=== PATIENT | male | born 1940 | race Caucasian/White ===

== ENCOUNTER 2017-06-27 14:00 | Inpatient (IN) ==
[2017-06-27] MEDS: NS 1,000 ML IV SCH (17:47)
--- NOTE | 2017-06-27 18:20 | Diag Imaging Result Doc PS360 ---
CHEST-PORTABLE - 06/27/2017 INDICATION: profound anemia TECHNIQUE: COMPARISON: None FINDINGS: There are several calcified granulomas in right hilar lymph nodes. The lungs are normally expanded and clear. Heart size and mediastinal contours are normal. No pneumothorax or pleural effusion. IMPRESSION: Negative exam. Electronically signed by Iftikhar La 06/27/2017 6:18 PM
[2017-06-27 18:23] LABS: HEMATOCRIT 18.2 % (42.0-52.0); MANUAL DIFF NEEDED? YES; MCH 26.1 PG (27-31); MCHC 29.1 g/dL (33-37); MCV 89.7 FL (81-99); MPV 9.3 FL (7.4-10.4); RBC 2.03 XMIL (4.7-6.1)
[2017-06-27 18:25] LABS: HEMOGLOBIN 5.3 g/dL (14.0-18.0); PLT 1260 X1000 (130-400)
[2017-06-27 18:26] LABS: ALBUMIN 3.2 g/dL (3.5-5.0); CALCIUM 7.7 mg/dL (8.8-10.2); POTASSIUM 4.5 mmol/L (3.5-5.1); TOTAL BILIRUBIN 0.58 mg/dL (0.20-1.00); TOTAL PROTEIN 5.4 g/dL (6.3-8.3)
[2017-06-27 18:36] LABS: INR 1.09; PROTIME 11.5 Seconds (9.2-11.7)
[2017-06-27 18:37] LABS: FERRITIN 65 ng/mL (30-400)
[2017-06-27 18:49] LABS: BANDS 7 % (0-1); LYMPHS 2 % (21-51); NRBC 6 % (0-0)
--- NOTE | 2017-06-27 19:07 | HISTORY AND PHYSICAL ---
CHIEF COMPLAINT: Weakness and GI bleeding. HISTORY OF PRESENT ILLNESS: Mr. 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 Mirza. He said over the past 2- 3 days he has been much more weak, almost unable to walk, but denies any unilateral or focal weakness. He also reports over the past 2-3 weeks he has had melena. He denies any abdominal pain , any bright red blood per rectum, or hematemesis. He has been, what he reports as dry heaving today, but denies any overt abdominal pain. When he got to [facility] he was profoundly anemic and had a white count of greater than 100,000. The decision was then to transfer him to our facility for further treatment and evaluation. Currently he is hemodynamically stable in the ICU without any real acute complaints. Comprehensive labs and diagnostics have been ordered and are pending. PAST MEDICAL HISTORY: 1. CML. 2. Nicotine dependence. 3. Hypertension. PAST SURGICAL HISTORY: He has had sinus surgery. SOCIAL HISTORY: He smokes a pack a day. Denies alcohol or drug use. He is a retired truck dispatcher. FAMILY HISTORY: Noncontributory. REVIEW OF SYSTEMS: Fourteen-point review of systems obtained and found to be negative with the exception of the HPI. ALLERGIES: No known drug allergies. HOME MEDICATIONS: Currently being compiled. PHYSICAL EXAMINATION: VITAL SIGNS: Blood pressure is 120/65, heart rate is 85, respiratory rate 19, O2 saturation 100% on 2 L, temperature is 97.5 degrees. GENERAL: This is a chronically ill-appearing, 76-year-old male, lying in hospital bed. No acute distress. NEUROLOGIC: The patient is awake, alert, oriented. Follows commands without focal deficits. HEENT: Head is atraumatic, normocephalic. His pupils are equal, round, reactive to light. Conjunctivae are pale. Oral mucosa is pale and dry. NECK: Supple. Trachea is midline. CHEST: Diminished at the bases but clear to auscultation bilaterally. CV: Regular rate and rhythm. S1, S2 is noted. GI: Soft, nondistended, nontender. Bowel sounds positive. EXTREMITIES: No edema, clubbing or cyanosis. Pulses palpable bilaterally. DIAGNOSTIC DATA: Pending. ASSESSMENT AND PLAN: 1. Gastrointestinal bleed: Presumably secondary to his Plavix and aspirin use. There is no abdominal pain. We will stop any antiplatelets and anticoagulants. Will consult GI. Add b.i.d. Protonix IV and IV fluids. We have ordered labs with type and screen and iron studies which are pending. 2. Acute blood loss anemia: Current hemoglobin and hematocrit is unknown but is pending shortly. Will type and screen the patient and transfuse if necessary. Iron studies have been ordered. 3. Coronary artery disease: Patient denies any chest pain. We have ordered an EKG and chest x- ray. Will monitor telemetry. 4. Chronic myelogenous leukemia: We will consult Dr. Mirza. His CBC is pending. 5. Nicotine dependence: Patient has been advised to quit smoking. We will write a nicotine patch and continue daily cessation education. 6. Deep vein thrombosis prophylaxis will be provided with SCDs given his gastrointestinal bleeding. Further recommendations to follow. Patient seen and examined by me face to face, all the lab work, vitals signs, images were reviewed, Patient has a past medical history of CML, he states that he was diagnosed 5 - 6 months ago but we talked with Dr Mirza, his oncologist Doctor and he was actually diagnose a couple weeks ago, he is currently asymptomatic, We will consult GI because of GI bleed and anemia, I agree with the assessment and plan, Rodo Alexander MD Dictated by MONIKA Harris for Rodo Sauceda MD cc: MONIKA Harris MD [facility]
[2017-06-27] MEDS: SODIUM CHLORIDE 0.9% INJ SCH (19:30)
[2017-06-27] MEDS: PROTONIX IV SCH (19:30)
[2017-06-27] MEDS ORDERED: NS 250 ML ONE (20:08)
[2017-06-27 20:38] LABS: URINE CULTURE NEEDED? NO
[2017-06-27 20:39] LABS: URINE MICRO REVIEW NEEDED? NO; URINE SOURCE CLEAN CATCH
[2017-06-27 20:46] LABS: BILIRUBIN URINE NEGATIVE (NEGATIVE); BLOOD URINE NEGATIVE (NEGATIVE); COLOR YELLOW; GLUCOSE URINE NEGATIVE (NEGATIVE); LEUKOCYTES URINE NEGATIVE (NEGATIVE); NITRITE URINE NEGATIVE (NEGATIVE); PH URINE 5.5; PROTEIN URINE TRACE mg/dL (NEGATIVE); SP GRAVITY URINE 1.017; TURBIDITY URINE CLEAR (CLEAR); UR EPITHELIAL CELLS <10 /HPF (<10); URINE BACTERIA NEGATIVE /HPF; URINE RBC <10 /HPF (<10); URINE WBC <10 /HPF (<10); UROBILINOGEN URINE NORMAL (NORMAL)
[2017-06-27 21:00] LABS: PROTEIN CREAT RATIO 0.2; UR CREAT RANDOM 69.1 mg/dL (14-26); UR PROT RANDOM 16.5 mg/dL
[2017-06-28 05:16] LABS: HEMATOCRIT 22.9 % (42.0-52.0); HEMOGLOBIN 7.1 g/dL (14.0-18.0); MCV 90.2 FL (81-99); MPV 9.5 FL (7.4-10.4); RBC 2.54 XMIL (4.7-6.1)
[2017-06-28 05:18] LABS: PLT 1083 X1000 (130-400)
--- NOTE | 2017-06-28 05:20 | EKG Report ---
Test Performed on : 06/27/2017 5:48:36 PM Test Reason : anemia Blood Pressure : / mmHG Vent. Rate : 081 BPM Atrial Rate : 081 BPM P-R Int : 328 ms QRS Dur : 096 ms QT Int : 388 ms P-R-T Axes : 000 -63 092 degrees QTc Int : 450 ms Sinus rhythm. with 1st degree AV block. with premature atrial complexes. Left axis deviation Nonspecific ST and T wave abnormality Abnormal ECG No previous ECGs available Confirmed by Roddy ESCOBEDO, Romulo Jack ([id number]) on 06/28/2017 10:02:33 AM
[2017-06-28 05:24] LABS: CALCIUM 7.5 mg/dL (8.8-10.2); POTASSIUM 4.2 mmol/L (3.5-5.1)
[2017-06-28] MEDS: NS 1,000 ML IV SCH ×2 (05:32→20:50)
[2017-06-28 07:05] LABS: BANDS 1 % (0-1); HYPOCHROM OCCASIONAL; LYMPHS 2 % (21-51); MONO 2 % (1-9); NRBC 6 % (0-0)
[2017-06-28] MEDS: PROTONIX IV SCH ×2 (07:42→19:11)
[2017-06-28] MEDS: SODIUM CHLORIDE 0.9% INJ SCH ×2 (07:43→19:11)
--- NOTE | 2017-06-28 09:20 | CONSULTATION ---
DATE OF CONSULTATION: 06/28/2017 REASON FOR CONSULTATION: Severe anemia. HISTORY OF PRESENT ILLNESS: This is a 76-year-old white male, who reports a recent diagnosis of leukemia, following with Dr. Mirza. He states he started taking a new medication prescribed by Dr. Mirza, and he feels that it made him extremely weak. He reports for the last 2- 3 days, he has been unable to walk and had severe weakness. He presented to [facility] and was found to be severely anemic. He was found to have a WBC count of greater than 100, platelet count greater than 1000. He does report over the last several weeks, he has noticed some black stools, but he related that to taking iron. He states his been on iron supplements for several years prescribed by his haul driver. He follows with Dr. Ricci in [place]. He has history of cardiovascular stents. He denies abdominal pain. No reported nausea or vomiting. No reported bright red blood per rectum. No reported hematemesis. He did report having dry heaves. He states he has never had an EGD or colonoscopy. PAST MEDICAL HISTORY: Hypertension, cardiovascular disease, recent diagnosis of CML, leukemia. PAST SURGICAL HISTORY: Cardiovascular stents, sinus surgery. ALLERGIES: No known drug allergies. HOME MEDICATIONS: Calcium 40 mg every night, Toprol-XL 25 mg daily, Sprycel 100 mg daily, Effient 10 mg daily, iron 325 mg daily, aspirin 81 mg daily, allopurinol 300 mg twice daily. SOCIAL HISTORY: He reports tobacco use, one pack of cigarettes a day. He denies alcohol use. He lives alone. He is a retired shuttle truck driver. REVIEW OF SYSTEMS: Per HPI. PHYSICAL EXAMINATION: Vital Signs: Temperature 97.7 degrees, pulse 79, respirations 22, blood pressure 116/45. General: Patient is awake, alert, in no acute distress. HEENT: Normocephalic, atraumatic. Pupils equal, round, reactive to light. Sclerae nonicteric. Cardiovascular: Regular rate and rhythm. Respiratory: Lung sounds essentially clear bilaterally. Abdomen: Soft, nontender. Positive bowel sounds. Nondistended. Extremities: No lower extremity edema noted. Pedal pulses present bilaterally. DIAGNOSTIC RESULTS: Laboratory: Hematology: WBC 84.56 on admission. It was 106.80, hemoglobin 7.1, hematocrit 22.9. On admission, hemoglobin was 5.3 and a hematocrit 18.2, platelet count 1083. On admission, platelet count was 1260. Coagulation: Pro-time 11.5, INR 1.09. Chemistry: Sodium 141, potassium 4.2, chloride 111, CO2 19, BUN 42, creatinine 1.6. Iron 52, calcium 7.5, ferritin 65, total bilirubin 0.58. AST 21, ALT 8, alkaline phosphatase 61, vitamin B12 greater than 2000. Folate 6.3. TSH 4.39. ASSESSMENT: 1. Severe anemia. 2. Questionable gastrointestinal bleed. He does take Effient and aspirin. Anticoagulants are on hold. 3. Coronary artery disease. Currently anticoagulation has been held. 4. Chronic myelogenous leukemia. Recent diagnosis following with Dr. Mirza. PLAN: Continue symptomatic treatment and supportive care. Continue to monitor hemoglobin and hematocrit, and transfuse further packed red blood cells as needed. Monitor for active bleeding. We will proceed with an EGD today if it is okay with Dr. Mirza. Further plans will be made according to findings. I have discussed the procedure with the patient along with benefits and risks, and he wishes to proceed. Further plans will be made as needed. Thank you for this consultation. Dictated by MONIKA Anne for Juice Barrios MD cc: MONIKA Beard MD [facility]
--- NOTE | 2017-06-28 09:52 | PROGRESS NOTE ---
DATE: 06/28/2017 SUBJECTIVE: This patient states that he is feeling fine. He is not complaining of chest pain or shortness of breath. No belly pain. Gastroenterology department evaluated this patient and probably, he will go for an upper endoscopy today or tomorrow, previous authorization of Dr. Mirza, his bicycle messenger/oncologist doctor. He is tolerating p.o. at this moment. OBJECTIVE: Vital Signs: Temperature 97.7 degrees, pulse 69, respiratory rate 19, blood pressure 103/53, oxygen saturation 97% on room air. HEENT: Head is normocephalic. No trauma. PERRLA. Neck: Supple. No JVD. No masses. Central trachea. Chest: Clear to auscultation. No wheezing. No rales. Abdomen: Soft, nontender, nondistended. No hepatosplenomegaly. Extremities: No edema. No clubbing. No cyanosis. Neurological: The patient is alert and oriented x3. No focal neurological deficits. LABORATORY: WBC 84.5, hemoglobin 7.1, hematocrit 22.9, platelet 1083. Sodium 141, potassium 4.2, chloride 101, bicarbonate 19, BUN 42, creatinine 1.6, glucose 91, calcium 7.5. ASSESSMENT AND PLAN: 1. Gastrointestinal bleed on a patient that was taking Plavix and aspirin, this already has been stopped. Gastroenterology Department evaluated this patient. Probably they will scope this patient today or tomorrow. I will continue with IV Protonix and IV fluids. He received already PRBCs, and the hemoglobin improved to 7.1. He is asymptomatic, and vital signs are stable. I will continue to monitor hemoglobin and hematocrit closely. 2. Acute blood loss anemia, status post 2 packed red blood cells, stable. Continue to monitor. 3. History of coronary artery disease. He denies any chest pain or shortness of breath. Will monitor. 4. Chronic myelogenous leukemia. Apparently, this patient was diagnosed with leukemia a couple weeks ago. Dr. Mirza from Hematology/Oncology Department following this patient. He has been consulted. 5. Nicotine dependence. This patient has been highly advised to quit smoking. I will continue with daily cessation education and a nicotine patch. 6. Deep vein thrombosis prophylaxis provided by sequential compression devices given his gastrointestinal bleed. cc: Rdoo Sauceda MD
[2017-06-28 10:08] LABS: URIC ACID 3.2 mg/dL (3.4-7.0)
--- NOTE | 2017-06-28 11:43 | Diag Imaging Result Doc PS360 ---
US RENAL 2 (RETROPER) COMPLETE - 06/28/2017 INDICATION: susan TECHNIQUE: COMPARISON: None FINDINGS: There are a few bilateral renal cysts measuring up to 1.5 cm. No mass or hydronephrosis. Renal sizes are normal. Urinary bladder is normal. The right kidney measures 10.2 x 4.8 x 4.5 cm. The left kidney measures 9.8 x 5.2 x 4.4 cm. Cortex measures 9 mm bilaterally. There is incidental note is splenomegaly. The spleen measures 17.3 x 16.5 x 6.8 cm. IMPRESSION: 1. Benign renal cysts but no acute abnormality of the urinary tract. 2. Splenomegaly. Electronically signed by Iftikhar La 06/28/2017 11:40 AM
[2017-06-28] MEDS ORDERED: DIPRIVAN 1% ONE ×2 (15:18→15:30)
[2017-06-28] MEDS ORDERED: EPINEPHRINE SYRINGE ONE (15:23)
--- NOTE | 2017-06-28 20:00 | CONSULTATION ---
DATE OF CONSULTATION: 06/28/2017 REQUESTING PROVIDER: Hospitalist service. REASON FOR CONSULTATION: CML, patient known. HISTORY OF PRESENT ILLNESS: Mr. Nicole is a 76-year-old male who is known to us, as he was recently diagnosed with CML and is currently receiving SPRYCEL treatment. The patient was initially seen by Dr. Mirza at [facility] where he was believed to have a gastrointestinal bleed at that time. The patient was actually admitted to the ICU over at [facility], but then left prior to having scopes done, as they were planned to be done as an outpatient. Patient is yet to have any scopes done. It appears that he has again presented to [facility] complaining of weakness. He also reported having melena but denied any bright red blood per rectum, hematemesis or abdominal pain. He has now been admitted to the ICU for close monitoring. He did present with a white count that was greater than 100,000. The patient has evidently only had about 2 doses of SPRYCEL. Currently, the patient is sitting in the ICU hemodynamically stable without any new complaints. PAST MEDICAL HISTORY: 1. CML. 2. Nicotine dependence. 3. Hypertension. 4. Coronary artery disease. 5. Hyperlipidemia. SURGICAL HISTORY: 1. Status post coronary stent placement. 2. Sinus surgery. SOCIAL HISTORY: The patient is a retired hi low truck driver. He smokes about a pack cigarettes per day. Denies any alcohol or drug use. FAMILY HISTORY: His mother is alive at the age of 90. His father is and at the age of 76 due to a DVT. REVIEW OF SYSTEMS: Fourteen point review of system has been done and is found to be negative except for what was expressed in the HPI. PHYSICAL EXAMINATION: Vital Signs: Temperature 97.7 degrees, heart rate 69, respirations 18, blood pressure 103/53, O2 saturation 97% on room air. General: This is a well- nourished, well- developed male, lying in the hospital bed. He does not appear to be in any acute distress. There is no one at bedside. HEENT: Head appears to be normocephalic , atraumatic. Eyes, patient has glasses in place. Pupils equal, round, reactive. Gross auditory acuity is intact. Trachea appears to be midline. Cardiovascular: S1-S2 heard. No murmurs, gallops, rubs appreciated. Respiratory: Chest is essentially clear to auscultation bilaterally with normal respiratory effort. Abdomen: Soft, nontender, nondistended with positive bowel sounds. Musculoskeletal: No obvious bony abnormalities noted. Extremities: No swelling noted. No edema noted. Neurologic: Patient is alert and oriented x3. No focal motor deficits noted. LABS AND STUDIES: Today white blood cell count 84.56, hemoglobin 7.1, hematocrit 22.9, platelets 1083. Sodium 141, potassium 4.2, chloride 111, CO2 19, BUN 42, creatinine 1.6 , glucose 91. ASSESSMENT: 1. Chronic myelogenous leukemia. The patient has started SPRYCEL but has only reportedly taken 2 doses. Hold SPRYCEL for now but plan to reinitiate once he is out of the hospital. Counts are improving from admission. 2. Anemia. The patient is status post 2 units of packed red blood cells. Hemoglobin is improved. Continue to transfuse p.r.n. Plan is hopefully for a scope today or tomorrow to evaluate for other source of bleeding. 3. Gastrointestinal bleed. Again, the patient has been having melena. Plan is for scope, I believe, and the esophagogastroduodenoscopy he either today or tomorrow. Follow up on those results. 4. Leukocytosis and thrombocytosis. These are both secondary to chronic myelogenous leukemia. The patient has recently been diagnosed and counts are improving. Continue to monitor. 5. Coronary artery disease. No chest pain is noted. Chest x-ray and EKG were found to be unremarkable. I want to thank you for consulting us on Mr. Nicole. While he is here at [facility], we will continue to follow along and adjust our treatment plan per his hospital course. Dictated by CAMELIA Pitts for Twyla Mirza MD cc: Twyla Mirza MD I have seen and examined the patient and the above note reflects my assessment and plan. Twyla VIEIRA
[2017-06-29 05:08] LABS: CALCIUM 7.5 mg/dL (8.8-10.2); POTASSIUM 4.2 mmol/L (3.5-5.1)
[2017-06-29 05:44] LABS: HEMATOCRIT 22.5 % (42.0-52.0); HEMOGLOBIN 6.7 g/dL (14.0-18.0); MCH 26.4 PG (27-31); MCHC 29.8 g/dL (33-37); MCV 88.6 FL (81-99); MPV 9.2 FL (7.4-10.4); RBC 2.54 XMIL (4.7-6.1)
[2017-06-29] MEDS ORDERED: CRESTOR PO SCH (07:46)
--- NOTE | 2017-06-29 09:08 | OPERATIVE NOTE ---
PROCEDURE DATE: 06/28/2017 PROCEDURE: Esophagogastroduodenoscopy and hemorrhage control. PREOPERATIVE DIAGNOSES: 1. Acute gastrointestinal bleed. 2. Anemia secondary to gastrointestinal bleed and leukemia. POSTOPERATIVE DIAGNOSES: Arteriovenous malformation, treated. MEDICATION: MAC as per Anesthesia. SCOPE: Olympus GIF HQ-[id number]. HISTORY: This is a 76-year-old gentleman who was recently diagnosed with leukemia and has been started on medication which he could not tolerated. However, in the interim he started having some dark stool. His hemoglobin dropped. The latest hemoglobin done in [facility] was 5.3 with hematocrit of 18.2. EGD was done for diagnostic as well as therapeutic purposes. DESCRIPTION OF PROCEDURE: Informed consent obtained from the patient. The procedure, risks, benefits, alternatives explained. He understood. All of his pertinent questions were answered. Patient was brought to the endoscopy unit and was premedicated as per Anesthesia. After adequate sedation, while he was lying in left lateral position, the gastroscope was introduced into the posterior pharynx and advanced under direct vision into the esophagus. Esophagus in its entire length appeared to be normal. No esophagitis, webs, rings, varices were seen. No evidence of active bleeding or stigmata of recent bleed seen. The scope was then passed through the esophagus into the stomach. Stomach was examined both straight and retroflexed view, which revealed normal cardia, fundus, body, and antrum. Again there was no evidence of active bleeding or stigmata of recent bleed. The scope was then passed through the normal pylorus, into the duodenal bulb, and then 2nd part duodenum. In the 2nd portions of the duodenum there were a few AVMs seen. One of them had evidence of possible recent bleed. The other 2 were small but no evidence of active bleeding from them. Using a sclerotherapy needle, I injected epinephrine [id number] in aliquots of 0.5 mL. A total of about 2 mL were injected altogether but all 3 of spots were injected. Then using Monopolar probe I cauterized all of these spots. Good cautery was noted. Initially there was some oozing but it stopped and no further bleeding was noted. I examined the rest of the 2nd portion of the duodenum as well as the bulb and there were no further he AVMs seen. The scope was then removed. Patient tolerated the procedure well. No complications noted. Patient was then transferred to the recovery area in a stable condition. 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 Got treated with epinephrine and cauterized successfully. RECOMMENDATION: We will continue to follow hemoglobin and hematocrit and transfuse if necessary. In the meantime, further plan as per Dr. Mirza, who is the oncologist on the case. I would continue him on proton pump inhibitor in the interim. cc: Juice Barrios MD
[2017-06-29 12:16] VITALS: BP 115/62
[2017-06-29] MEDS: ZYLOPRIM PO SCH ×2 (12:42→12:43)
[2017-06-29] MEDS ORDERED: PROTONIX PO SCH (21:00)
[2017-06-30] MEDS ORDERED: PEPCID PO SCH (09:00)
--- NOTE | 2017-06-30 10:49 | DISCHARGE SUMMARY ---
ADMISSION DATE: 06/27/2017 DISCHARGE DATE: 06/29/2017 CONSULTATIONS: 1. Dr. Barrios with Gastroenterology. 2. Dr. Mirza, with Hematology. PERTINENT PROCEDURES: 1. Renal ultrasound showed benign renal cysts, but no acute abnormality of the urinary tract, splenomegaly. 2. EGD and hemorrhage control for acute GI bleed and anemia secondary to GI bleed and leukemia by Dr. Barrios. DISCHARGE DIAGNOSES: 1. Acute gastrointestinal bleed status post esophagogastroduodenoscopy and hemorrhage control of arteriovenous malformation, second portion of the duodenum, treated with epinephrine cauterized successfully. 2. Anemia secondary to gastrointestinal bleed and leukemia status post esophagogastroduodenoscopy with hemorrhage control with epinephrine and cautery status post 3 units of packed red blood cells. 3. Chronic myelogenous leukemia. The patient was just diagnosed and receiving Sprycel treatment with Dr. Mirza at [facility]. 4. Recent gastrointestinal bleed, where the patient was being seen in [facility], and he left prior to having his scopes done. They were planned on being done as an outpatient. 5. Leukocytosis and thrombocytosis both secondary to chronic myelogenous leukemia. 6. Coronary artery disease, with no chest pain. HOSPITAL COURSE: Mr. Nicole is a 76-year-old male with a history of CML followed by Dr. Mirza, presented to [facility] facility with weakness, which she attributed to new medications started by Dr. Mirza. He said over the past 2 3 days he had been more weak, almost unable to walk, but denied unilateral or focal weakness. He reported 2-3 weeks of melena. No abdominal pain, or bright red blood per rectum, or hematemesis. He reports dry heaving. When he was at [facility], he was profoundly anemic. Had a white count greater than 100,000. I made the decision to transfer him to [facility]. The patient had originally been seen by Dr. Mirza at [facility], where they did suspect that he had the GI bleed, and where he was admitted to the ICU at [facility]. But he was transferred prior to having scopes done , that they had planned to do as an outpatient. He was hemodynamically stable in the ICU without any real acute complaint. Hematology as well as GI were consulted. No laboratory data was relatively available right away. However, when those did result, he had a white count of 106, H and H was 5 and 18, a platelet count of 1260. The patient had been taking Plavix and aspirin. This has been discontinued. He was continued on IV Protonix, IV fluids. He received 2 units of PRBC. He was completely asymptomatic. His H and H's were monitored closely. His hemoglobin and hematocrit did improve status post his transfusions. His leukocytosis and thrombocytosis for secondary to his CML. They were improving, and they will continue his Sprycel once he is over his acute event from the hospital. He did undergo an EGD and hemorrhage control with Dr. Barrios. They found the AV malformations in the second portion of the duodenum that was most likely the source of his bleeding, especially he was on antiplatelets with aspirin and Plavix. He treated him with epinephrine and cauterized successfully. He was continued on IV Protonix for an additional day, monitored his hemoglobin and hematocrit. He received 1 more unit of blood. Dr. Hall feels that he is appropriate for discharge home today. VITAL SIGNS: Temperature is 98.4 degrees, heart rate 53. Of note, he did have some episodes of bradycardia that is completely asymptomatic. He refused a cardiology consult. He wants to follow up with his livestock brands inspector in [place]. He will need to follow up with his PCP , as well as Dr. Mirza for his CML. DISCHARGE DIET: Full liquid, advance as tolerated. DISCHARGE MEDICATIONS: 1. Allopurinol 300 mg p.o. b.i.d. 2. Aspirin 81 mg p.o. daily. 3. Sprycel 100 mg p.o. daily. 4. Pepcid 40 mg p.o. daily. 5. Ferrous sulfate 325 mg p.o. daily. 6. Toprol-XL 25 mg p.o. daily. 7. Effient 10 mg p.o. daily. 8. Pravastatin/calcium 40 mg p.o. at bedtime. FOLLOWUP: Mr. Nicole is being discharged home. He is to follow up with Dr. Mirza in 1 week. He has [facility]. He is to follow up with Dr. Barrios as well as his livestock brands inspector, in [place], and he can return to the ED for any worsening of symptoms. Time discharging this patient 35 minutes Dictated by MONIKA Bautista for Rodo Sauceda MD cc: Rodo Sauceda MD [facility]
== END 2017-06-29 13:35 | disposition home health service (06) ==
LOC: DIRADM 14:00 → ICU 15:10 → 3S 06-29 05:25 → 3N 06-29 07:43
PROVIDERS: ATTEND Internal Medicine